=== PATIENT | female | born 1995 | race Caucasian/White ===

== ENCOUNTER 2022-11-27 08:01 | Emergency (ER) | payer BC ==
[2022-11-27] MEDS ORDERED: Sodium Chloride 0.9% 1,000 ML IV ONE (08:16)
[2022-11-27] MEDS: Sodium Chloride 0.9% 10 ML Syringe FLUSH PRN ×2 (08:20→09:56)
[2022-11-27 08:41] LABS: ANION GAP 12.5 mmol/L (5-15)
[2022-11-27 09:12] LABS: RESPIRATORY SYNCYTIAL VIR NAA NEGATIVE (NEGATIVE)
[2022-11-27 09:17] LABS: CORONAVIRUS COVID-19 NAA NEGATIVE (NEGATIVE)
[2022-11-27] MEDS ORDERED: cefTRIAXone 2 GM Vial IVPUSH ONE (09:39)
== END 2022-11-27 10:10 | disposition home or self-care (01) ==
LOC: KA.ED 08:01
DX: N39.0 Urinary tract infection, site not specified (principal); D72.828 Other elevated white blood cell count; Z20.822 Contact with and (suspected) exposure to COVID-19
CPT/HCPCS: 0241U; 36415; 80053; 81001; 83605; 85025; 86140; 87086; 87088; 87186; 96361; 96374; 99284; 99284-25; J0696; J3490; J7030